=== PATIENT | male | born 1980 | race Caucasian/White ===

== ENCOUNTER 2017-02-11 19:11 | Emergency (ER) | payer MEDICAID ==
[~2017-02-11] VITALS: Ht 167.6 cm; Wt 85.6 kg
[2017-02-11 19:12] VITALS: BP 129/87
[2017-02-11] MEDS ORDERED: SODIUM CHLORIDE FLUSH 10ML SYR IVF ONE (19:30)
[2017-02-11] MEDS ORDERED: ONDANSETRON 2MG/ML, 2ML IVPush ONE (19:30)
[2017-02-11] MEDS ORDERED: SODIUM CHLORIDE 0.9% 1,000ML IVBOLUS ONE (19:30)
[2017-02-11 20:19] LABS: ASPARTATE AMINO TRANSFERASE 31 U/L (15-37); BLOOD UREA NITROGEN 12 mg/dL (7-18)
== END 2017-02-11 22:18 | disposition home or self-care (01) ==
LOC: ED 22:03
DX: R19.7 Diarrhea, unspecified (principal); R11.0 Nausea; K56.0 Paralytic ileus
CPT/HCPCS: 36415; 74020; 80053; 81003; 83690; 85025; 96360; 99285; J7030

== ENCOUNTER 2017-11-28 17:14 | Emergency (ER) | payer MEDICAID ==
[~2017-11-28] VITALS: Ht 167.6 cm; Wt 90.6 kg
[2017-11-28 17:15] VITALS: BP 122/80
[2017-11-28] MEDS ORDERED: DEXAMETHASONE 4 MG TABLET PO STA (18:37)
[2017-11-28] MEDS ORDERED: DEXAMETHASONE 4 MG TABLET ONE (18:39)
== END 2017-11-28 19:36 | disposition home or self-care (01) ==
LOC: ED 18:00
DX: J20.8 Acute bronchitis due to other specified organisms (principal)
CPT/HCPCS: 71046; 99284